=== PATIENT | male | born 1985 | race Caucasian/White ===

== ENCOUNTER → 2020-12-10 | Outpatient (CLI) | payer BC ==
[~2020-12-10] MED LIST: NORCO 5-325 TA1 EACH PO
[2020-12-10 16:37] LABS: HEMOGLOBIN 15.2 gm/dl (14.0-17.5); RED BLOOD COUNT 4.58 M/UL (4.20-5.50); WHITE BLOOD COUNT 7.1 K/UL (4.5-11.0)
[2020-12-10 17:05] LABS: BUN/CREATININE RATIO 11 (0-10)
[2020-12-12 05:09] LABS: VITAMIN D, 25-HYDROXY 29.3 ng/mL (30.0-100.0)
== END ==
LOC: LAB 15:41
PROVIDERS: Nurse Practitioner Family
DX: I83.819 Varicose veins of unspecified lower extremity with pain (principal); R53.82 Chronic fatigue, unspecified; Z72.0 Tobacco use; M25.561 Pain in right knee; M25.562 Pain in left knee
CPT/HCPCS: 73564; 80053; 80061; 81001; 84436; 84443; 84480; 85025

== ENCOUNTER 2021-11-12 06:09 | Observation (INO) | payer BC ==
[~2021-11-12] VITALS: Ht 167.6 cm; Wt 64.5 kg
[2021-11-12 07:19] LABS: RED BLOOD COUNT 4.65 M/UL (4.20-5.50); WHITE BLOOD COUNT 15.1 K/UL (4.5-11.0)
[2021-11-12 07:45] LABS: BUN/CREATININE RATIO 10 (0-10)
[2021-11-12] MEDS ORDERED: EXCEDRIN MIGRA1 EAC1 PO (14:00)
== END 2021-11-13 16:51 | disposition home or self-care (01) ==
LOC: ER1 06:09 → CDU 13:10 → MED SURG 4 13:10
PROVIDERS: Physician Assistant Medical; ADMIT Surgery
PROC: 0FT44ZZ Resection of Gallbladder, Percutaneous Endoscopic Approach (ICD-10-PCS; principal; 2021-11-13 12:00)
DX: K81.2 Acute cholecystitis with chronic cholecystitis (principal); Z20.822 Contact with and (suspected) exposure to COVID-19; F17.210 Nicotine dependence, cigarettes, uncomplicated; Z88.0 Allergy status to penicillin; Z88.8 Allergy status to other drugs, medicaments and biological substances; Z79.82 Long term (current) use of aspirin
CPT/HCPCS: 71045; 76705; 80053; 81001; 82550; 82553; 83690; 84484; 85025; 93005; 96374; 96375; 99285; C9113; G0378; J0690; J1100; J1885; J2001; J2250; J2270; J2405; J2704; J2710; J3010; J7030; J7120; Q9967; U0002

== ENCOUNTER 2022-01-26 05:55 | Emergency (ER) | payer BC ==
[~2022-01-26 05:55] MED LIST changes: +EXCEDRIN MIGRA1 EAC1 PO
== END 2022-01-26 08:58 | disposition home or self-care (01) ==
LOC: ER1 05:55
DX: G43.909 Migraine, unspecified, not intractable, without status migrainosus (principal); Z90.49 Acquired absence of other specified parts of digestive tract
CPT/HCPCS: 96374; 96375; 99283; J1885; J2765